=== PATIENT | male | born 1940 | race Caucasian/White ===

== ENCOUNTER 2024-03-06 08:21 | Emergency (ER) | payer MEDICARE, OTHER ==
[~2024-03-06] VITALS: Ht 180.3 cm; Wt 84.1 kg
[2024-03-06 08:29] VITALS: BP 147/84; PULSE 105; RESP 18; TEMP 98; O2SAT 99
[2024-03-06] MEDS ORDERED: PRED20TA PO (10:07)
[2024-03-06] MEDS ORDERED: FURO-149 PO (10:07)
[2024-03-06] MEDS ORDERED: CYCL-1 PO (10:07)
== END 2024-03-06 11:12 | disposition home or self-care (01) ==
LOC: ER 08:21
DX: S39.012A Strain of muscle, fascia and tendon of lower back, initial encounter (principal); M54.32 Sciatica, left side; W18.30XA Fall on same level, unspecified, initial encounter; Y93.89 Activity, other specified; Y92.89 Other specified places as the place of occurrence of the external cause; Y99.8 Other external cause status
CPT/HCPCS: 72100; 99284

== ENCOUNTER 2024-03-12 23:45 | Inpatient (IN) | payer MEDICARE, OTHER ==
[~2024-03-12] VITALS: Ht 180.3 cm; Wt 82.0 kg
[~2024-03-12 23:45] MED LIST: CYCL-1 PO; FURO-149 PO; PRED20TA PO
[2024-03-13] VITALS (7 sets, daily range): BP systolic 113–132; BP diastolic 66–78; PULSE 75–133; RESP 16–22; TEMP 97–98; O2SAT 94–99
[2024-03-13 00:06] LABS: BASOPHILS % (AUTO) 0.3 % (0-1); EOSINOPHILS % (AUTO) 0.1 % (0-6); HEMATOCRIT 43.3 % (42.0-52.0); HEMOGLOBIN 14.7 g/dl (14.0-17.9); LYMPHOCYTES # (AUTO) 0.7 X10'3 (1.1-4.8); LYMPHOCYTES % (AUTO) 9.2 % (21-51); MEAN CORPUSCULAR HEMOGLOBIN 33.2 PG (27.0-31.0); MEAN CORPUSCULAR HGB CONC 33.9 g/dL (33.0-36.5); MEAN PLATELET VOLUME 9.1 FL (7.4-10.4); MONOCYTES # (AUTO) 0.5 X10'3 (0-0.9); MONOCYTES % (AUTO) 5.8 % (2-12); NEUTROPHILS # (AUTO) 6.5 X10'3 (1.8-7.7); NEUTROPHILS % (AUTO) 84.6 % (42-75); PLATELET COUNT 210 X10'3 (140-440); RED BLOOD COUNT 4.42 X10'6 (4.70-6.10); WHITE BLOOD COUNT 7.7 X10'3 (4.5-11.0)
[2024-03-13 00:17] LABS: ALANINE AMINOTRANSFERASE 50 U/L (12-78); ALBUMIN 3.6 G/DL (3.4-5.0); ALBUMIN/GLOBULIN RATIO 1.2 (1.1-1.5); ALKALINE PHOSPHATASE 98 IU/L (46-116); ANION GAP 8 (8-16); ASPARTATE AMINO TRANSFERASE 23 U/L (10-37); BILIRUBIN,TOTAL 0.5 MG/DL (0.1-1.0); BLOOD UREA NITROGEN 24 MG/DL (7-18); BUN/CREATININE RATIO 17.1 (10.0-20.0); CALCIUM 9.6 MG/DL (8.5-10.1); CHLORIDE 102 MMOL/L (99-107); GLUCOSE 208 MG/DL (70-104); POTASSIUM 4.5 MMOL/L (3.5-5.1); SODIUM 139 MMOL/L (135-145); TOTAL PROTEIN 6.6 G/DL (6.4-8.2); eCRCL 41 ML/MIN; eGFR 48 ML/MIN
[2024-03-13 00:25] LABS: PRO BRAIN NATRIURETIC PEPTIDE 1950 PG/ML (0-450)
[2024-03-13] MEDS ORDERED: magnesium 4gm in 100ml NS 100 ML IV PRN (01:55)
[2024-03-13] MEDS ORDERED: potassium Cl 40MEQ/1/2NS 520ml 520 ML IV PRN (01:55)
[2024-03-13] MEDS ORDERED: ondansetron/PF 4mg/2ml inj IV PRN (01:55)
[2024-03-13] MEDS ORDERED: mag hydrox/Alum hydrox/simeth 30ml oral suspension PO PRN (01:55)
[2024-03-13] MEDS ORDERED: magnesium hydroxide 30ml (MOM) UD suspension PO PRN (01:55)
[2024-03-13] MEDS ORDERED: acetaminophen 325mg tablet PO PRN (01:55)
[2024-03-13] MEDS ORDERED: magnesium 2GM in 50ml NS 50 ML IV PRN (01:55)
[2024-03-13] MEDS ORDERED: magnesium Cl slow-release 64mg tablet PO PRN (01:55)
[2024-03-13] MEDS ORDERED: potassium Cl 20 mEq SR tablet PO PRN ×2 (01:55)
[2024-03-13] MEDS: metoprolol succinate 25mg (24-HOUR) SR. Tablet PO SCH (02:35)
[2024-03-13 02:49] LABS: HEMOGLOBIN A1C 5.8 % (4.5-6.2)
[2024-03-13] MEDS: furosemide 10 MG/1 ML 10ml inj IV ONE (02:50)
[2024-03-13 03:00] LABS: FREE T4 (FREE THYROXINE) 1.12 NG/DL (0.73-1.40); THYROID STIMULATING HORMONE 0.78 ulU/ml (0.34-4.50)
[2024-03-13] MEDS ORDERED: FINA5TAB11 PO (03:19)
[2024-03-13] MEDS ORDERED: FLO0.4C PO (03:19)
[2024-03-13] MEDS ORDERED: LEVO75CA5 PO (03:19)
[2024-03-13] MEDS ORDERED: CELE-28 PO (03:19)
[2024-03-13 03:46] LABS: BILIRUBIN,URINE NEGATIVE (Neg); CLARITY,URINE CLEAR (Clear); COLOR,URINE YELLOW (Yellow); GLUCOSE, URINE NEGATIVE (Neg); KETONES,URINE NEGATIVE (Neg); LEUKOCYTE ESTERASE ,URINE NEGATIVE (Neg); NITRITES, URINE NEGATIVE (Neg); OCCULT BLOOD,URINE NEGATIVE (Neg); PROTEIN,URINE NEGATIVE (Neg); UROBILINOGEN,URINE 0.2 E.U/dL (0.2-1.0)
[2024-03-13 03:52] LABS: UA COLLECTION TYPE URINAL
[2024-03-13 04:08] LABS: MAGNESIUM 2.2 MG/DL (1.5-2.4); POTASSIUM 4.1 MMOL/L (3.5-5.1)
[2024-03-13] MEDS: K and/or MAG REPLACEMENT MC SCH (08:00)
[2024-03-13] MEDS: docusate sod 100mg capsule PO SCH (08:11)
[2024-03-13] MEDS: apixaban 5mg tablet PO SCH (08:11)
[2024-03-13] MEDS: furosemide 10 MG/1 ML 10ml inj IV SCH (08:12)
[2024-03-13] MEDS: tamsulosin 0.4mg capsule PO SCH (11:44)
[2024-03-13] MEDS: metoprolol succinate 25mg (24-HOUR) SR. Tablet PO ONE (13:06)
[2024-03-13] MEDS ORDERED: LEVALBUTEROL HCL 1.25 MG/3 ML VIAL.NEB INH PRN (13:40)
[2024-03-13] MEDS: ipratropium 0.5 MG/2.5ML nebule IH PRN (14:06)
[2024-03-13] MEDS ORDERED: aminophylline 250mg/10ml inj. IV PRN (18:45)
[2024-03-13] MEDS ORDERED: nitroGLYCERIN 0.4mg SUBLingual tab SL PRN (18:45)
[2024-03-13] MEDS ORDERED: metoprolol tartrate 1mg/ml inj IV PRN (18:45)
[2024-03-13] MEDS: sacubitril/valsartan 24mg-26mg tablet PO SCH (19:50)
[2024-03-13] MEDS: finasteride 5mg tablet PO SCH (20:02)
[2024-03-14] VITALS (10 sets, daily range): BP systolic 100–135; BP diastolic 64–91; PULSE 83–118; RESP 14–19; TEMP 97.4–97.5; O2SAT 94–99
[2024-03-14 06:51] LABS: BASOPHILS % (AUTO) 0.5 % (0-1); EOSINOPHILS % (AUTO) 0.5 % (0-6); HEMATOCRIT 42.7 % (42.0-52.0); HEMOGLOBIN 14.4 g/dl (14.0-17.9); LYMPHOCYTES % (AUTO) 20.6 % (21-51); MEAN CORPUSCULAR HEMOGLOBIN 33.1 PG (27.0-31.0); MEAN CORPUSCULAR HGB CONC 33.8 g/dL (33.0-36.5); MEAN CORPUSCULAR VOLUME 97.7 FL (78-98); MEAN PLATELET VOLUME 9.3 FL (7.4-10.4); MONOCYTES # (AUTO) 0.7 X10'3 (0-0.9); MONOCYTES % (AUTO) 7.1 % (2-12); NEUTROPHILS # (AUTO) 6.8 X10'3 (1.8-7.7); NEUTROPHILS % (AUTO) 71.3 % (42-75); PLATELET COUNT 182 X10'3 (140-440); RED BLOOD COUNT 4.37 X10'6 (4.70-6.10); WHITE BLOOD COUNT 9.6 X10'3 (4.5-11.0)
[2024-03-14 07:00] LABS: INR 1.1 INR; PROTHROMBIN TIME 11.7 SECONDS (9.0-12.0)
[2024-03-14 07:01] LABS: APTT 25 SECONDS (22-32)
[2024-03-14 07:13] LABS: ALANINE AMINOTRANSFERASE 49 U/L (12-78); ALBUMIN/GLOBULIN RATIO 1.2 (1.1-1.5); ALKALINE PHOSPHATASE 80 IU/L (46-116); ANION GAP 7 (8-16); ASPARTATE AMINO TRANSFERASE 19 U/L (10-37); BILIRUBIN,TOTAL 0.4 MG/DL (0.1-1.0); BLOOD UREA NITROGEN 28 MG/DL (7-18); BUN/CREATININE RATIO 26.4 (10.0-20.0); CALCIUM 9.2 MG/DL (8.5-10.1); CHLORIDE 106 MMOL/L (99-107); CHOL/HDL RATIO 2.7 (0.00-4.99); CHOLESTEROL 151 MG/DL (0-200); CREATININE 1.06 MG/DL (0.60-1.10); GLUCOSE 114 MG/DL (70-104); HDL CHOLESTEROL 55 MG/DL (35-60); LDL CHOLESTEROL 73 MG/DL (50-100); MAGNESIUM 2.2 MG/DL (1.5-2.4); PHOSPHORUS 4.2 MG/DL (2.3-4.5); POTASSIUM 3.8 MMOL/L (3.5-5.1); SODIUM 140 MMOL/L (135-145); TOTAL CARBON DIOXIDE 26.7 MMOL/L (24-32); TOTAL PROTEIN 5.6 G/DL (6.4-8.2); TRIGLYCERIDES 128 MG/DL (20-135); eCRCL 54 ML/MIN; eGFR 66 ML/MIN
[2024-03-14 07:44] LABS: LARGE PLATELETS FEW; PLATELET ESTIMATE NORMAL
[2024-03-14] MEDS: metoprolol succinate 25mg (24-HOUR) SR. Tablet PO SCH (08:00)
[2024-03-14] MEDS: EMPAGLIFLOZIN 10 MG TABLET PO SCH (09:01)
[2024-03-14] MEDS: levoTHYROXINE 75mcg tablet PO SCH (09:03)
[2024-03-14] MEDS: regadenoson 0.4mg/5ml syringe IV PRN (11:46)
[2024-03-14] MEDS ORDERED: METO-384 PO ×2 (16:33→16:37)
[2024-03-14] MEDS ORDERED: SACU1TAB PO ×2 (16:33→16:37)
[2024-03-14] MEDS ORDERED: EMPA10TA PO ×2 (16:33→16:37)
[2024-03-14] MEDS ORDERED: APIX5TAB3 PO (16:34)
[2024-03-14] MEDS ORDERED: FLO0.4C PO (16:42)
[2024-03-14] MEDS ORDERED: FINA5TAB12 PO (16:42)
== END 2024-03-14 17:34 | disposition home or self-care (01) | DRG 291 ==
LOC: ER 23:45 → ED HOLD 03-13 02:08 → PCU 3S 03-13 06:57
PROVIDERS: ADMIT Internal Medicine Sleep Medicine; ATTEND Family Medicine
PROC: 4A02XM4 Measurement of Cardiac Total Activity, External Approach (ICD-10-PCS; principal; 2024-03-14)
PROC: 3E033HZ Introduction of Radioactive Substance into Peripheral Vein, Percutaneous Approach (ICD-10-PCS; 2024-03-14)
DX: I50.21 Acute systolic (congestive) heart failure (principal); N17.0 Acute kidney failure with tubular necrosis; I48.0 Paroxysmal atrial fibrillation; N40.0 Benign prostatic hyperplasia without lower urinary tract symptoms; E03.9 Hypothyroidism, unspecified; R73.9 Hyperglycemia, unspecified; J45.909 Unspecified asthma, uncomplicated; M54.9 Dorsalgia, unspecified; Z86.16 Personal history of COVID-19; Z79.84 Long term (current) use of oral hypoglycemic drugs; Z79.01 Long term (current) use of anticoagulants; Z87.01 Personal history of pneumonia (recurrent); Z79.899 Other long term (current) drug therapy
CPT/HCPCS: 36415; 71045; 76770; 78452; 80053; 80061; 81003; 83036; 83735; 83880; 84100; 84132; 84439; 84443; 84484; 85008; 85025; 85610; 85730; 87081; 93005; 93017; 93306; 94640; 94760; 99291; A9500; G0378; J1940; J2785